=== PATIENT | female | born 1990 | race Asian ===

== ENCOUNTER 2018-09-10 08:32 | Outpatient (CLI) | payer OTHER | END 2018-09-10 23:40 | disposition home or self-care (01) | LOC: US 08:32 | DX: R10.31 Right lower quadrant pain (principal) ==

== ENCOUNTER 2022-09-05 21:37 | Emergency (ER) | payer BC, OTHER ==
[~2022-09-05] VITALS: Ht 172.7 cm; Wt 124.3 kg
[2022-09-05 21:40] VITALS: TEMP 99
[2022-09-05 22:21] LABS: PLATELET COUNT 243 K/uL (152-353)
[2022-09-05 22:30] LABS: POTASSIUM 3.6 mmol/L (3.6-5.2)
[2022-09-05 23:25] VITALS: BP 116/58
== END 2022-09-05 23:25 | disposition home or self-care (01) ==
LOC: ED 21:37
PROVIDERS: Family Medicine
DX: A08.4 Viral intestinal infection, unspecified (principal)
CPT/HCPCS: 80053; 81002; 81025; 85027; 96374; 96375; 99284; J2270; J2405